=== PATIENT | male | born 1935 | race Caucasian/White ===

== ENCOUNTER 2025-04-08 06:52 | Day surgery (SDC) | payer MEDICARE, OTHER ==
[2025-04-07 13:57] LABS: MEAN PLATELET VOLUME 9.8 FL (7.4-10.4); RED CELL DISTRIBUTION WIDTH 13.8 % (11.5-14.5)
[2025-04-07 14:07] LABS: CREATININE 1.12 MG/DL (0.60-1.10); INR 1.5 INR; TOTAL CARBON DIOXIDE 25.7 MMOL/L (24-32); eGFR 62 ML/MIN
[~2025-04-08] VITALS: Ht 185.4 cm; Wt 113.4 kg
--- NOTE | 2025-04-08 07:16 | ELECTROCARDIOGRAPH REPORT ---
[facility] Test Date: 2025-04-08 Test Time: 07:10:37 Pat Name: ANDREA PEREZ Department: [facility] Patient ID: [facility]-[id number] Room: Gender: M Web Content Director: YVONNE : 1935 Requested By: ELIZABETH FERREIRA Order Number: [id number] Reading MD: Dr. MARIAM Ferreira Measurements Intervals [place] Rate: 110 P: 0 MD: 0 QRS: 14 QRSD: 97 T: 60 QT: 367 QTc: 497 Interpretive Statements Atrial fibrillation Low voltage, extremity leads Borderline prolonged QT interval Electronically Signed On 04-08-2025 16:42:[address] MARIAM Ferreira Please click the below link to view image of tracing.
[2025-04-08] MEDS ORDERED: METO-395 PO (07:21)
[2025-04-08] MEDS ORDERED: LISI5TAB22 PO (07:21)
[2025-04-08] MEDS ORDERED: AMIO200T76 PO (07:21)
[2025-04-08] MEDS ORDERED: APIX5TAB3 PO (07:21)
[2025-04-08] MEDS ORDERED: SPIR25TA5 PO (07:21)
[2025-04-08] MEDS ORDERED: VIBE75TA PO (07:28)
[2025-04-08] MEDS ORDERED: TAMS-55 PO (07:28)
[2025-04-08] MEDS ORDERED: FINA5TAB11 PO (07:28)
[2025-04-08] MEDS ORDERED: ATOR20TA66 PO (07:28)
[2025-04-08] MEDS ORDERED: ALLO100T PO (07:28)
[2025-04-08] MEDS ORDERED: OMEP40CA21 PO (07:29)
[2025-04-08] MEDS ORDERED: normal saline 1000ml 1,000 ML IV SCH (07:30)
[2025-04-08] MEDS ORDERED: morphine 10mg/ml inj. IV ONE (07:30)
[2025-04-08] MEDS ORDERED: atropine 0.1mg/ml 10ml syringe IV ONE (07:30)
[2025-04-08] MEDS ORDERED: MIDAZolam 1mg/ml 10ml vial IV ONE (07:30)
[2025-04-08] MEDS ORDERED: amiodarone 150mg/dext, iso-os 100 ML IV ONE (07:30)
[2025-04-08 07:41] VITALS: BP 119/72; PULSE 72; RESP 14; TEMP 97.7; O2SAT 97
[2025-04-08] MEDS ORDERED: fentaNYL/PF 50MCG/1 ML 2ML syringe ONE (08:53)
[2025-04-08] MEDS ORDERED: atropine 0.1mg/ml 10ml syringe ONE (08:53)
[2025-04-08] MEDS ORDERED: amiodarone 50MG/ML inj IV ONE (08:53)
[2025-04-08] MEDS ORDERED: midazolam 1 mg/ML 2ml injection ONE (08:53)
[2025-04-08 09:15] VITALS: BP 88/58; PULSE 64; RESP 20; O2SAT 95
[2025-04-08 09:30] VITALS: BP 92/57; PULSE 64; RESP 20; O2SAT 95
--- NOTE | 2025-04-08 09:33 | ELECTROCARDIOGRAPH REPORT ---
[facility] Test Date: 2025-04-08 Test Time: 09:27:00 Pat Name: ANDREA PEREZ Department: [facility] Patient ID: [facility]-[id number] Room: Gender: M Broom Builder: : 1935 Requested By: ELIZABETH FERREIRA Order Number: [id number] Reading MD: Dr. MARIAM Ferreira Measurements Intervals [place] Rate: 64 P: 33 FL: 193 QRS: 31 QRSD: 104 T: 60 QT: 431 QTc: 445 Interpretive Statements Sinus rhythm Atrial premature complex Low voltage, extremity and precordial leads Electronically Signed On 04-08-2025 16:50:[address] MARIAM Ferreira Please click the below link to view image of tracing.
[2025-04-08 09:45] VITALS: BP 101/60; PULSE 63; RESP 20; O2SAT 94
[2025-04-08 10:00] VITALS: BP 108/65; PULSE 63; RESP 21; O2SAT 95
[2025-04-08 10:15] VITALS: BP 112/62; PULSE 66; RESP 18; O2SAT 96
--- NOTE | 2025-04-08 10:56 | CARDIOLOGY REPORT ---
DATE OF SERVICE: 04/08/2025 DICTATING PHYSICIAN: MARIAM Ferreira MD ELECTRICAL CARDIOVERSION PRIMARY PHYSICIAN: Dr. Josie Soler MD RADIUS CORNER MACHINE OPERATOR: MARIAM Ferreira MD. INDICATION: The patient is an 89-year-old male with history of prediabetes, hyperlipidemia, hypertension, chronic diastolic heart failure, and paroxysmal atrial fibrillation. The patient presented to [facility] on 03/18/2025 with AFib with RVR. Started on Cardizem. They did try cardioversion in the ER, but he converted back to AFib. Subsequently, he was transitioned to amiodarone, Eliquis, and Cardizem and discharged home. He saw me in my office for the first 03/31/2025 after discussing risks, benefits and alternatives, he was started his after discussing the risks, benefits, artery options, the patient prefers to proceed with the lab. The patient in view of his symptoms preferred to proceed with electrocardioversion. Risks, benefits, and alternative options were discussed. Informed consent obtained. DESCRIPTION OF PROCEDURE: Anterior and posterior patch was used by using biphasic electrical energy 200 joules per hour x 1 convert normal sinus rhythm. The patient was recommended to decrease his amiodarone to once a day. Continue metoprolol succinate 25 mg tablet daily. His Cardizem CD has been discontinued already. IMPRESSION: An 89-year-old with paroxysmal atrial fibrillation, successfully converted to normal sinus rhythm. Continue lower amiodarone 200 mg a day. Continue Eliquis 5 mg p.o. b.i.d. Continue metoprolol succinate once a day. The patient was recommended to diet, weight loss and exercise program and if she has any history of snoring, to consider sleep study. 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 MARIAM Ferreira MD TID: [id number] RECEIPT: [id number] /DIV Cc Dr. Sivan Soler, [facility]
== END 2025-04-08 10:30 | disposition home or self-care (01) ==
LOC: SSTAY O 06:52
PROVIDERS: ATTEND Internal Medicine Cardiovascular Disease
DX: I48.0 Paroxysmal atrial fibrillation (principal); I49.1 Atrial premature depolarization; I11.0 Hypertensive heart disease with heart failure; I50.32 Chronic diastolic (congestive) heart failure; E78.5 Hyperlipidemia, unspecified; Z79.01 Long term (current) use of anticoagulants; Z79.899 Other long term (current) drug therapy; Z98.890 Other specified postprocedural states; Z82.49 Family history of ischemic heart disease and other diseases of the circulatory system
CPT/HCPCS: 36415; 80048; 85025; 85610; 92960; 93005; J2250; J3010; J7030; Z7610; 99152; 99153; J0282; J0461